=== PATIENT | female | born 1960 | race Caucasian/White ===

== ENCOUNTER 2016-09-18 16:49 | Emergency (ER) | payer OTHER ==
[2016-09-18 16:53] VITALS: RESP 16
[2016-09-18] MEDS ORDERED: ONDANSETRON 4 MG/2 ML VIAL ONE (16:58)
[2016-09-18 16:59] VITALS: TEMP 97.5
[2016-09-18] MEDS ORDERED: NS 1,000 ML IV ONE ×2 (17:02→18:09)
[2016-09-18] MEDS ORDERED: ONDANSETRON 4 MG/2 ML VIAL IVP ONE ×2 (17:02)
--- NOTE | 2016-09-18 17:03 | EDPHY ---
H & P Time Seen by Provider: 09/18/16 17:01 HPI/ROS: CHIEF COMPLAINT: Nausea, vomiting, diarrhea HISTORY OF PRESENT ILLNESS: This patient is a 56 year old female who presents to the Emergency Department complaining of acute onset nausea, vomiting, and diarrhea beginning at 1400 today. She felt normal this morning and was able to eat a full lunch. She was walking on [address] after lunch when she began to feel lightheaded before vomiting multiple times followed by multiple episodes of diarrhea. She reports associated chills. She also complains of diffuse abdominal cramping. She has not been able to identify any alleviating factors for her symptoms. She has no additional complaints. 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 She does not know anyone personally with the same symptoms. 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 Smoking Status: Never smoked Physical Exam: General Appearance: Alert, shivering, hyperventilating Eyes: Pupils equal and round, no conjunctival pallor or injection ENT, Mouth: Mucous membranes moist Neck: Normal inspection Respiratory: Lungs are clear to auscultation Cardiovascular: Regular rate and rhythm Gastrointestinal: Abdomen is soft, mild epigastric tenderness Neurological: A&O, nonfocal exam Skin: Warm and dry, no rash Extremities: Nontender, no pedal edema Psychiatric: anxious Constitutional: Initial Vital Signs Temperature (C) 36.4 C 09/18/16 16:51 Heart Rate 85 09/18/16 16:51 Respiratory Rate 16 09/18/16 16:51 Blood Pressure 106/72 09/18/16 16:51 O2 Sat (%) 98 09/18/16 16:51 O2 Delivery Mode Room Air Allergies/Adverse Reactions: No Known Allergies Allergy (Unverified 09/18/16 17:50) Home Medications: Medication Instructions Recorded NK [No Known Home Meds] 05/20/17 Medical Decision Making ED Course/Re-evaluation: This 56-year-old female presents with acute vomiting and diarrhea with associated chills presenting at 1400 today. At time of presentation, she is shivering but is otherwise well appearing. Her abdomen is benign. She is afebrile at triage. I discussed with her my suspicion of gastroenteritis and plan for symptomatic treatment prior to discharge. She expresses agreement to this. IV established. 1L IV NS, 8mg IV Zofran, and 30mg IV Toradol administered for cramping. Labs obtained: WBC elevated at 20.36. On reevaluation, the patient reports improvement to her pain and nausea. She was able to pass a trial of ice chips. Abd: soft, NT. She feels comfortable being discharged home at this time. She is given a take home pack of Zofran and instructions to follow-up with her PCP for reevaluation if she does not return to normal by Tuesday. She understands customary return precautions and will be discharged home in good condition. Differential Diagnosis: includes though not limited to SBO, appy, cholecystitis, diverticulitis, severe dehydration - Data Points Laboratory Results: Laboratory Results 09/18/16 17:05 09/18/16 17:05 Medications Given: Discontinued Medications Sodium Chloride (Ns) 1,000 mls @ 0 mls/hr IV ONCE ONE PRN Reason: Wide Open Stop: 09/18/16 17:03 Last Admin: 09/18/16 17:10 Dose: 1,000 mls Sodium Chloride (Ns) 1,000 mls @ 0 mls/hr IV ONCE ONE PRN Reason: Wide Open Stop: 09/18/16 18:10 Last Admin: 09/18/16 18:09 Dose: 1,000 mls Ketorolac Tromethamine (Toradol) 30 mg IVP EDNOW ONE Stop: 09/18/16 17:52 Last Admin: 09/18/16 17:59 Dose: 30 mg Ondansetron HCl (Zofran) 4 mg IVP EDNOW ONE Stop: 09/18/16 17:03 Last Admin: 09/18/16 17:14 Dose: Not Given Ondansetron HCl (Zofran) 4 mg IVP EDNOW ONE Stop: 09/18/16 17:03 Last Admin: 09/18/16 17:14 Dose: 4 mg Departure - Departure Disposition: Home, Routine, Self-Care Clinical Impression: Gastroenteritis Condition: Good Instructions: Ondansetron (By mouth), Gastroenteritis (ED) Additional Instructions: 1. Take one tab of Zofran every 4-6 hours as needed for nausea and vomiting. 2. You should expect your vomiting to subside within the next 24 hours and diarrhea to subside within the next 48. If your symptoms do not subside or if they worsen, please return to the Emergency Department immediately. You should also return to the ED if you experience blood in your vomit or stool, uncontrollable high fever, or additional serious concerns. 3. Follow-up with your primary care provider if you do not return entirely to normal in 2-3 days. If you need to see a PCP here in [place], we have referred you to our on-call provider. Referrals: Nathan Santiago MD [Medical Doctor] - As per Instructions Report Scribed for: Elizabeth Sheikh Report Scribed by: Caitlyn Esparza Date of Report: 09/18/16 Time of Report: 17:03 Physician Review and Approval Statement: 09/18/16 17:03 Portions of this note were transcribed by a medical supply technician. I personally performed a history, physical exam, medical decision making, and confirmed accuracy of information the transcribed note.
[2016-09-18] MEDS ORDERED: ONDANSETRON 4MG PREPACK#2 BTL TAKEHOME ONE ×2 (17:09→19:51)
[2016-09-18] MEDS ORDERED: KETOROLAC 30 MG/1 ML SDV IVP ONE (17:51)
[2016-09-18 18:04] LABS: % IMMATURE GRANULYOCYTES 0.5 % (0.0-1.1); ADD DIFF? NO; ADD MORPH? NO; ADD SCAN? NO; ATYPICAL LYMPHOCYTE FLAG 0 (0-99); FRAGMENT RBC FLAG 0 (0-99); HEMATOCRIT 49.3 % (38.0-47.0); HEMOGLOBIN 16.5 g/dL (12.6-16.3); LEFT SHIFT FLG 30 (0-99); LIPEMIA HEMOLYSIS FLAG 80 (0-99); MEAN CELL HEMOGLOBIN 29.8 pg (27.9-34.1); MEAN CELL HEMOGLOBIN CONCENTR. 33.5 g/dL (32.4-36.7); MEAN PLATELET VOLUME 10.2 fL (8.7-11.7); PLATELET CLUMPS FLAG 10 (0-99); PLATELET COUNT 372 10^3/uL (150-400); RED BLOOD CELL COUNT 5.54 10^6/uL (4.18-5.33); RED CELL DISTRIBUTION WIDTH 12.3 % (11.5-15.2)
[2016-09-18 18:10] LABS: ANION GAP 15 mEq/L (8-16); CALCIUM 10.8 mg/dL (8.5-10.4); CARBON DIOXIDE 20 mEq/l (22-31); CHLORIDE 108 mEq/L (97-110); CREATININE 1.1 mg/dL (0.6-1.0); GLOMERULAR FILTRATION RATE 52; GLUCOSE 148 mg/dL (70-100); POTASSIUM 4.4 mEq/L (3.5-5.2); SODIUM 143 mEq/L (134-144)
[2016-09-18 19:08] VITALS: BP 111/72; PULSE 76; O2SAT 96
== END 2016-09-18 19:57 | disposition home or self-care (01) ==
DX: K52.9 Noninfective gastroenteritis and colitis, unspecified (principal)
CPT/HCPCS: 96374; J1885; J2405